=== PATIENT | female | born 1960 | race Caucasian/White ===

== ENCOUNTER → 2021-02-09 09:54 | Outpatient (CLI) | payer MEDICAID, SELFPAY ==
--- NOTE | 2021-02-09 10:01 | NM_ITS ---
EXAM: NM <parathyroid study> CLINICAL INDICATION: HYPERPARATHYROIDISM -- ELEVATED BLOOD CALCIUM LEVELS TECHNIQUE: Nuclear medicine parathyroid planar imaging (immediate and delayed). 25.8 mCi of TECHNETIUM 99M labeled SESTAMIBI. This report was created using [employer] technology. COMPARISON: None. FINDINGS: Immediate images demonstrate expected, physiologic activity salivary glands. Thyroid activity is identified with focal increased activity identified in the upper right thyroid lobe. On delayed imaging, there is only mild washout of the thyroid gland with persistent focal activity of the upper right thyroid lobe. NM/Parathyroid Scan IMPRESSION: 1. Focal activity of the upper right thyroid lobe on immediate and delayed images could represent a thyroid adenoma versus parathyroid adenoma. Recommend correlating with thyroid ultrasound. Electronically Signed: Osei Jeter MD ([place]) at 9:26 EST , Service support ,
== END ==
PROVIDERS: PCP Family Medicine; Referring Provider Physician Assistant; Visit Provider Physician Assistant
DX: E21.3 Hyperparathyroidism, unspecified (principal)
CPT/HCPCS: 78070; A9500